=== PATIENT | male | born 1940 | race African-American/Black ===

== ENCOUNTER 2019-10-18 18:27 | Emergency (ER) | payer OTHER ==
[~2019-10-18] VITALS: Ht 185.4 cm; Wt 63.5 kg
--- NOTE | 2019-10-18 18:41 | NUR ---
JAGDISH AND SAVANNAHD, TO ER BED 7. AAOX2. NOT IN RESP DISTRESS, BREATHING EVEN AND UNLABORED. SMELLS OF URINE. BROUGHT IN BECAUSE PT HAS BEEN MISSING FOR THE PAST 3 DAYS AND WAS FOUND IN THE PT'S CAR BY THE [employer]. PT HAS NO MEDICAL COMPLAINT. WAS AT THE BEDSIDE FOR EVAL. ORDERS RECEIVED, NOTED AND CARRIED OUT. [employer] AT BEDSIDE TALKING TO PT.
--- NOTE | 2019-10-18 18:50 | NUR ---
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
--- NOTE | 2019-10-18 18:55 | NUR ---
PT WAS GOWNED UP BUT HE REFUSED TO HAVE HIS PANTS CHANGES DESPITE SMELLING OF URINE.
[2019-10-18 18:59] LABS: EOSINOPHILS % (AUTO) 0.8 % (0.0-6.0); HEMATOCRIT 47 % (39-51); HEMOGLOBIN 15.6 g/dL (13.5-17.5); LYMPHOCYTES # (AUTO) 1.8 /CMM (0.8-4.8); LYMPHOCYTES % (AUTO) 45.5 % (20.0-44.0); MEAN CORPUSCULAR HGB CONC 33 g/dl (31.0-36.0); MEAN CORPUSCULAR VOLUME 95 fL (80-96); MONOCYTES # (AUTO) 0.3 /CMM (0.1-1.30); MONOCYTES % (AUTO) 6.8 % (2.0-12.0); NEUTROPHILS # (AUTO) 1.8 /CMM (1.8-8.9); NEUTROPHILS % (AUTO) 45.9 % (43.0-81.0); PLATELET COUNT (AUTO) 203 /CMM (150-450); WHITE BLOOD COUNT (AUTO) 3.9 K/uL (4.3-11.0)
[2019-10-18 19:03] LABS: APPEARANCE,URINE Clear (CLEAR); BILIRUBIN,URINE SMALL (NEGATIVE); BLOOD, URINE Trace-intact Ery/uL (NEGATIVE); COLOR,URINE Yellow (YELLOW); KETONES,URINE 15 (NEGATIVE); LEUKOCYTE ESTERASE ,URINE Negative (NEGATIVE); NITRITE, URINE Negative (NEGATIVE); PH,URINE 5.5 (5.0-8.0); PROTEIN,URINE 30 mg/dl (NEGATIVE); UGLUCOSE Negative (NEGATIVE)
[2019-10-18 19:17] LABS: ALCOHOL, BLOOD < 3 mg/dL (0-0); CALCIUM, SERUM 8.7 mg/dL (8.5-10.1); CARBON DIOXIDE 27 mmol/L (21-32); CHLORIDE 105 mmol/L (98-107); CREATININE 1.8 mg/dL (0.6-1.3); GLUCOSE 86 mg/dL (74-106); POTASSIUM 4.1 mmol/L (3.5-5.1); SODIUM SERUM 140 mmol/L (136-145); UREA NITROGEN, BLOOD 30 mg/dL (7-18)
[2019-10-18 19:24] LABS: BACTERIA,URINE Few /HPF (None Seen); MUCUS,URINE Few /LPF (None Seen); SQUAMOUS EPITHELIAL CELL,UR Few /HPF (None Seen); WBC,URINE 0-2 /HPF (0-3)
--- NOTE | 2019-10-18 19:42 | NUR ---
PROVIDED WITH FOOD
[2019-10-18] MEDS ORDERED: IV NS 0.9% 1,000 ML IV ONE (20:00)
--- NOTE | 2019-10-18 20:27 | NUR ---
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
--- NOTE | 2019-10-18 21:22 | NUR ---
CALLED JOSÉ LEYVA
--- NOTE | 2019-10-18 22:13 | NUR ---
OT IN BED SLEEPING COMFORTABLY. NAD NOTED
--- NOTE | 2019-10-18 22:29 | NUR ---
[facility][id number] AT BEDSIDE FOR PT TRANSPORT BACK TO HIS HOME. REPORT GIVEN.
--- NOTE | 2019-10-18 23:00 | NUR ---
PT LEFT ON GURNEY WITH 2 AMBULANCE STAFF ON STABLE CONDITION.
[2019-10-18 23:05] VITALS: BP 176/99
== END 2019-10-18 23:06 | disposition home or self-care (01) ==
LOC: ER 18:35
DX: E86.0 Dehydration (principal); N28.9 Disorder of kidney and ureter, unspecified; F03.90 Unspecified dementia, unspecified severity, without behavioral disturbance, psychotic disturbance, mood disturbance, and anxiety
CPT/HCPCS: 36415; 71045; 80048; 80305; 80307; 81001; 85025; 93005; 96360; 99285; J7030; 81000-TC; G0480